=== PATIENT | male | born 2000 ===

== ENCOUNTER 2021-05-10 15:02 | Emergency (ER) | payer SELFPAY ==
[2021-05-10 17:45] VITALS: BP 161/108
[2021-05-10] MEDS ORDERED: KETOROLAC 10 MG TAB PO ONE (18:44)
[2021-05-10] MEDS ORDERED: LIDOCAINE-MPF (1%) 10 MG/1 ML VIAL 5 ML INFILTRATI ONE (18:44)
[2021-05-10] MEDS ORDERED: SULFAMETHOXAZOLE/TRIMETHOPRIM 800/160MG DS TAB PO ONE (18:45)
--- NOTE | 2021-05-10 19:13 | Emergency Department Report ---
- General Chief complaint: Skin/Abscess/Foreign Body Stated complaint: FINGER INJURY Time Seen by Provider: 05/10/21 18:42 Source: patient Mode of arrival: Ambulatory Limitations: No Limitations - History of Present Illness Initial comments: 20-year-old male presents to the emergency department for 2-day history of worsening right middle finger pain and swelling. He states that he thinks that he hit his finger on something while at work a few days ago and since then increasing pain and swelling. He denies fever or drainage. complaint: abscess/boil -: Gradual, days(s) (2) Tetanus Up to Date: yes Location: R hand Severity: severe Severity scale (0 -10): 10 Quality: aching, constant Consistency: constant Improves with: none Worsens with: palpation, movement Context: none Associated symptoms: denies other symptoms Treatments Prior to Arrival: none - Related Data Previous Rx's Medication Instructions Recorded Last Taken Type Naproxen [Naprosyn] 500 mg PO BID #14 tablet 05/10/21 Unknown Rx Sulfamethoxazole/Trimethoprim 1 each PO BID #10 tab 05/10/21 Unknown Rx [Bactrim DS TAB] Allergies Allergy/AdvReac Type Severity Reaction Status Date / Time No Known Allergies Allergy Unverified 05/10/21 17:41 Abscess Boil HPI - HPI Chief Complaint: Skin/Abscess/Foreign Body Stated Complaint: FINGER INJURY Time Seen by Provider: 05/10/21 18:42 Duration: 2 Days Location: Upper Extremity History: Yes Pain, No Fever, No Purulent Drainage, No Numbness, No Foreign Body, No Previous History, No Insect Bite Home Medications: Previous Rx's Medication Instructions Recorded Last Taken Type Naproxen [Naprosyn] 500 mg PO BID #14 tablet 05/10/21 Unknown Rx Sulfamethoxazole/Trimethoprim 1 each PO BID #10 tab 05/10/21 Unknown Rx [Bactrim DS TAB] Allergies/Adverse Reactions: Allergies Allergy/AdvReac Type Severity Reaction Status Date / Time No Known Allergies Allergy Unverified 05/10/21 17:41 ED Review of Systems ROS: Stated complaint: FINGER INJURY Other details as noted in HPI Comment: All other systems reviewed and negative Constitutional: denies: chills, diaphoresis, fever, malaise, weakness Eyes: denies: eye pain, eye discharge ENT: denies: ear pain Respiratory: denies: cough, shortness of breath Cardiovascular: denies: chest pain, palpitations Endocrine: no symptoms reported Gastrointestinal: denies: abdominal pain, nausea, vomiting Genitourinary: denies: urgency, dysuria Musculoskeletal: denies: back pain Skin: denies: rash, lesions Neurological: denies: headache, weakness Psychiatric: denies: anxiety, depression ED Past Medical Hx - Medications Home Medications: Home Medications Medication Instructions Recorded Confirmed Last Taken Type Naproxen [Naprosyn] 500 mg PO BID #14 tablet 05/10/21 Unknown Rx Sulfamethoxazole/Trimethoprim 1 each PO BID #10 tab 05/10/21 Unknown Rx [Bactrim DS TAB] ED Physical Exam - General Limitations: No Limitations General appearance: alert, in no apparent distress - Head Head exam: Present: atraumatic, normocephalic - Eye Eye exam: Present: normal appearance. Absent: conjunctival injection - Neck Neck exam: Present: normal inspection - Respiratory Respiratory exam: Present: normal lung sounds bilaterally. Absent: respiratory distress, chest wall tenderness - Cardiovascular Cardiovascular Exam: Present: bradycardia, normal heart sounds - GI/Abdominal GI/Abdominal exam: Present: soft, normal bowel sounds. Absent: distended, ten derness - Expanded Upper Extremity Exam Right Hand Wrist exam: Present: tenderness, swelling, ecchymosis, erythema. Absent: nail avulsion Hand L/R Back: 1 - noted to have 2-3+ swelling to tissue behind nailbed. Area noted to be fluctuant and discolored. Area warm and tender to any touch Vascular: Present: normal capillary refill. Absent: vascular compromise, pulse deficit radial art - Back Exam Back exam: Present: normal inspection, full ROM - Neurological Exam Neurological exam: Present: alert, oriented X3 - Psychiatric Psychiatric exam: Present: normal affect, normal mood - Skin Skin exam: Present: warm, dry, intact, normal color ED Course Vital Signs 05/10/21 17:41 Temperature 98.5 F Pulse Rate 59 L Respiratory 18 Rate Blood Pressure 161/108 [Right] O2 Sat by Pulse 100 Oximetry - I & D Right Finger Type of Procedure: Simple Site: Paronychia of right middle finger Blade Size: 11 I & D Procedure: betadine prep Progress: Right middle finger nerve block, then I&D of right middle finger paronychia. Finger expressed for moderate amounts of malodorous purulent drainage. Patient tolerated it well. - Nerve Block Consent Obtained: verbal consent Time Out Performed: Yes Local Anesthetic Used: Lidocaine 1% Amount of anesthesia used: 3 Side: right Nerve Blocks: digital Procedure Successful: Yes Complications: none Patient Tolerated Procedure: well, no complications ED Medical Decision Making - Medical Decision Making 20-year-old male presents to the emergency department for 2-day history of worsening right middle finger pain and swelling. He states that he thinks that he hit his finger on something while at work a few days ago and since then increasing pain and swelling. He denies fever or drainage. Patient noted to have paronychia in the right middle finger. Finger was given nerve block and I&D performed for moderate amounts of malodorous purulent drainage. Patient tolerated procedure well. Patient will be treated with 5-day course of Bactrim for infection along with naproxen as needed for pain. Plan discussed with patient and he verbalized understanding of and agreement with. He was advised to return to the ED if worsening symptoms or no improvement. Critical care attestation.: If time is entered above; I have spent that time in minutes in the direct care of this critically ill patient, excluding procedure time. ED Disposition Clinical Impression: Paronychia of finger Qualifiers: Laterality: right Qualified Code(s): L03.011 - Cellulitis of right finger Disposition: 01 HOME / SELF CARE / HOMELESS Is pt being admited?: No Does the pt Need Aspirin: No Condition: Stable Instructions: Paronychia, [id number] Additional Instructions: Take medications as prescribed. Follow-up in ED if no improvement or worsening symptoms. Prescriptions: Sulfamethoxazole/Trimethoprim [Bactrim DS TAB] 1 each PO BID #10 tab Naproxen [Naprosyn] 500 mg PO BID #14 tablet Referrals: BIPIN HERNANDEZ MD [Referring] - 3-5 Days Time of Disposition: 19:13
== END 2021-05-10 19:31 | disposition home or self-care (01) ==
LOC: ED 15:02
DX: L03.011 Cellulitis of right finger (principal); Z79.899 Other long term (current) drug therapy
CPT/HCPCS: 10060; 99282; J3490